=== PATIENT | female | born 1950 | race Caucasian/White ===

== ENCOUNTER → 2023-09-27 07:53 | Outpatient (REF) | payer MEDICARE, BC, SELFPAY | LOC: HWWDC 07:53 | PROVIDERS: ATTENDING PHYSICIAN Internal Medicine | DX: Z12.31 Encounter for screening mammogram for malignant neoplasm of breast (principal) | CPT/HCPCS: 77063; 77067 ==

== ENCOUNTER → 2023-12-14 06:13 | Outpatient (REF) | payer MEDICARE, BC, SELFPAY ==
[2023-12-14 10:52] LABS: ALT (SGPT) 26 U/L (0-35); AST (SGOT) 26 U/L (14-36); Albumin 4.4 g/dl (3.5-5.0); Alkaline Phosphatase 83 U/L (38-126); Blood Urea Nitrogen 39 mg/dl (7-17); Calcium 9.6 mg/dl (8.4-10.2); Carbon Dioxide 27 mmol/L (22-30); Chloride 105 mmol/L (98-107); Glucose 127 mg/dl (70-99); Potassium 3.6 mmol/L (3.5-5.1); Sodium 140 mmol/L (135-145); Total Bilirubin 1.6 mg/dl (0.2-1.3); Total Protein 6.6 g/dl (6.3-8.2); eGFR 39.23
[2023-12-14 11:42] LABS: Glycohemoglobin (HgbA1c) 6.6 % (4.0-5.6)
== END ==
LOC: HWLAB 06:13
PROVIDERS: ATTENDING PHYSICIAN Internal Medicine
DX: R80.9 Proteinuria, unspecified (principal); E11.29 Type 2 diabetes mellitus with other diabetic kidney complication
CPT/HCPCS: 36415; 80053; 83036

== ENCOUNTER → 2024-01-19 10:14 | Outpatient (REF) | payer MEDICARE, BC, SELFPAY ==
[2024-01-19 12:39] LABS: Blood Urea Nitrogen 35 mg/dl (7-17); Calcium 10.2 mg/dl (8.4-10.2); Carbon Dioxide 27 mmol/L (22-30); Chloride 103 mmol/L (98-107); Glucose 98 mg/dl (70-99); Potassium 3.9 mmol/L (3.5-5.1); Sodium 138 mmol/L (135-145); eGFR 42.88
[2024-01-19 14:26] LABS: Microalbumin, Random Urine 1.8 mg/dl (0.6-1.7); Microalbumin/creatinine Ratio 91.4 mg/g
== END ==
LOC: HWLAB 10:14
PROVIDERS: ATTENDING PHYSICIAN Internal Medicine
DX: I27.20 Pulmonary hypertension, unspecified (principal); E11.9 Type 2 diabetes mellitus without complications; R79.89 Other specified abnormal findings of blood chemistry
CPT/HCPCS: 36415; 80048; 82043; 82570

== ENCOUNTER → 2024-02-16 09:12 | Outpatient (REF) | payer MEDICARE, BC, SELFPAY | LOC: HWRAD 09:12 | PROVIDERS: ATTENDING PHYSICIAN Internal Medicine; REFERRING PHYSICIAN Specialist | DX: R79.89 Other specified abnormal findings of blood chemistry (principal) | CPT/HCPCS: 76770 ==

== ENCOUNTER → 2024-03-14 07:09 | Outpatient (REF) | payer MEDICARE, BC, SELFPAY ==
[2024-03-14 10:13] LABS: % Basophils 1.1 % (0-2); % Eosinophils 2.8 % (0-6); % Immature Granulocytes 0.2 % (0-0.5); % Monocytes 8.8 % (1.7-9.3); % Neutrophils 57.1 % (42.2-75.2); Absolute Basophils 0.1 10^3/uL (0-0.2); Absolute Eosinophils 0.2 10^3/uL (0-0.7); Absolute Lymphocytes 1.7 10^3/uL (1.2-3.4); Absolute Monocytes 0.5 10^3/uL (0.1-0.6); Absolute Neutrophils 3.2 10^3/uL (1.4-6.5); Hematocrit 43.6 % (37.0-47.0); Hemoglobin 14.9 g/dL (12.0-16.0); Mean Corp Hgb Conc. 34.2 g/dL (33.0-37.0); Mean Corpuscular Hgb 29.3 pg (27.0-31.0); Mean Corpuscular Volume 85.8 fL (81.0-99.0); Mean Platelet Volume 10.6 fL (7.4-10.4); Nucleated Red Blood Cells % 0 %; Platelet Count 227 10^3/uL (130-400); Red Blood Cell Count 5.08 10^6/uL (4.20-5.40); Red Cell Dist. Width 12.2 % (11.5-14.5); White Blood Cell Count 5.7 10^3/uL (4.8-10.8)
[2024-03-14 11:58] LABS: Albumin 4.4 g/dl (3.5-5.0); Blood Urea Nitrogen 29 mg/dl (7-17); Calcium 10.1 mg/dl (8.4-10.2); Carbon Dioxide 23 mmol/L (22-30); Chloride 105 mmol/L (98-107); Glucose 104 mg/dl (70-99); Phosphorus 3.6 mg/dl (2.5-4.5); Potassium 4.2 mmol/L (3.5-5.1); Sodium 142 mmol/L (135-145); Uric Acid 5.8 mg/dl (2.5-6.2); eGFR 42.88
[2024-03-14 12:08] LABS: Protein/creatinine Ratio 0.3; Urine Protein 14 mg/dl
[2024-03-14 12:09] LABS: Intact PTH 40.2 pg/ml (13.6-85.8); Microalbumin, Random Urine 1.2 mg/dl (0.6-1.7); Microalbumin/creatinine Ratio 29.5 mg/g
[2024-03-14 12:22] LABS: Cortisol, Random 17.3 ug/dl; TSH Reflex To Free T4 3.81 uIU/ml (0.47-4.68)
[2024-03-17 09:16] LABS: Aldosterone, Serum 25.1 ng/dL; Aldosterone/Renin Activ Ratio 22.8 ratio (<=25.0); Renin Activity Results 1.1 ng/mL/hr
== END ==
LOC: HWLAB 07:09
PROVIDERS: ATTENDING PHYSICIAN Specialist; FAMILY PHYSICIAN Internal Medicine
DX: R79.89 Other specified abnormal findings of blood chemistry (principal); I1A.0 Resistant hypertension
CPT/HCPCS: 36415; 80069; 82043; 82088; 82533; 82570; 83835; 83970; 84156; 84244; 84443; 84550; 85025

== ENCOUNTER → 2024-04-02 16:04 | Outpatient (REF) | payer MEDICARE, BC, SELFPAY | LOC: RAD 16:04 | PROVIDERS: ATTENDING PHYSICIAN Internal Medicine Cardiovascular Disease; FAMILY PHYSICIAN Internal Medicine | DX: I10 Essential (primary) hypertension (principal); R60.0 Localized edema | CPT/HCPCS: 93970 ==

== ENCOUNTER → 2024-04-03 13:04 | Outpatient (REF) | payer MEDICARE, BC, SELFPAY | LOC: PAVMRI 13:04 | PROVIDERS: ATTENDING PHYSICIAN Specialist; FAMILY PHYSICIAN Internal Medicine | DX: I1A.0 Resistant hypertension (principal) | CPT/HCPCS: 74185; A9585 ==

== ENCOUNTER 2024-04-17 06:07 | Day surgery (SDC) | payer MEDICARE, BC, SELFPAY ==
[2024-04-17 10:53] VITALS: BMI 27.7
[2024-04-17 11:03] VITALS: BP 153/77
[2024-04-17 11:07] VITALS: BMI 27.7
[2024-04-17 11:16] LABS: Glucose - Point of Care 119 mg/dl (70-99)
[2024-04-17 13:05] VITALS: BP 103/60
[2024-04-17 13:20] VITALS: BP 87/74
[2024-04-17 13:21] LABS: Glucose - Point of Care 97 mg/dl (70-99)
[2024-04-17 13:35] VITALS: BP 120/73
== END 2024-04-17 13:40 | disposition home or self-care (01) ==
LOC: SDS 06:07
PROVIDERS: ATTENDING PHYSICIAN Internal Medicine Gastroenterology
DX: Z12.11 Encounter for screening for malignant neoplasm of colon (principal); D12.3 Benign neoplasm of transverse colon; K63.5 Polyp of colon; K57.30 Diverticulosis of large intestine without perforation or abscess without bleeding; K64.0 First degree hemorrhoids; Z86.0101 Personal history of adenomatous and serrated colon polyps; Z98.890 Other specified postprocedural states
CPT/HCPCS: 45385; 88305; 82962

== ENCOUNTER → 2024-04-19 07:57 | Outpatient (REF) | payer MEDICARE, BC, SELFPAY | LOC: HWRCS 07:57 | PROVIDERS: ATTENDING PHYSICIAN Internal Medicine Cardiovascular Disease; FAMILY PHYSICIAN Internal Medicine | DX: I10 Essential (primary) hypertension (principal); R60.0 Localized edema | CPT/HCPCS: 93306 ==

== ENCOUNTER → 2024-04-30 06:53 | Outpatient (REF) | payer MEDICARE, BC, SELFPAY ==
[2024-04-30 10:22] LABS: Blood Urea Nitrogen 31 mg/dl (7-17); Calcium 9.5 mg/dl (8.4-10.2); Carbon Dioxide 25 mmol/L (22-30); Chloride 104 mmol/L (98-107); Glucose 113 mg/dl (70-99); Potassium 4.3 mmol/L (3.5-5.1); Sodium 143 mmol/L (135-145); eGFR 47.21
[2024-04-30 11:27] LABS: Folate > 20.0 ng/ml (2.76-20); Vitamin B12 696 pg/ml (239-931)
== END ==
LOC: HWLAB 06:53
PROVIDERS: ATTENDING PHYSICIAN Specialist; FAMILY PHYSICIAN Internal Medicine
DX: R43.8 Other disturbances of smell and taste (principal); R79.89 Other specified abnormal findings of blood chemistry; I12.9 Hypertensive chronic kidney disease with stage 1 through stage 4 chronic kidney disease, or unspecified chronic kidney disease
CPT/HCPCS: 36415; 80048; 82607; 82746; 84207

== ENCOUNTER → 2024-06-15 06:11 | Outpatient (REF) | payer MEDICARE, BC, SELFPAY ==
[2024-06-15 09:32] LABS: % Basophils 1.2 % (0-2); % Eosinophils 3.1 % (0-6); % Lymphocytes 28.9 % (20.5-51.1); % Neutrophils 56.8 % (42.2-75.2); Absolute Basophils 0.1 10^3/uL (0-0.2); Absolute Eosinophils 0.2 10^3/uL (0-0.7); Absolute Lymphocytes 1.4 10^3/uL (1.2-3.4); Absolute Monocytes 0.5 10^3/uL (0.1-0.6); Absolute Neutrophils 2.8 10^3/uL (1.4-6.5); Hemoglobin 14.9 g/dL (12.0-16.0); Mean Corp Hgb Conc. 33.1 g/dL (33.0-37.0); Mean Corpuscular Hgb 30.7 pg (27.0-31.0); Mean Corpuscular Volume 92.6 fL (81.0-99.0); Mean Platelet Volume 10.7 fL (7.4-10.4); Nucleated Red Blood Cells % 0 %; Platelet Count 166 10^3/uL (130-400); Red Blood Cell Count 4.86 10^6/uL (4.20-5.40); Red Cell Dist. Width 13.2 % (11.5-14.5); White Blood Cell Count 4.9 10^3/uL (4.8-10.8)
[2024-06-15 11:09] LABS: ALT (SGPT) 33 U/L (0-35); AST (SGOT) 29 U/L (14-36); Albumin 4.5 g/dl (3.5-5.0); Alkaline Phosphatase 87 U/L (38-126); Blood Urea Nitrogen 32 mg/dl (7-17); Calcium 9.6 mg/dl (8.4-10.2); Carbon Dioxide 26 mmol/L (22-30); Chloride 103 mmol/L (98-107); Glucose 118 mg/dl (70-99); HDL Cholesterol 63 mg/dl; LDL Cholesterol, Calculated 70 mg/dl; Potassium 4.3 mmol/L (3.5-5.1); Sodium 139 mmol/L (135-145); Total Bilirubin 1.5 mg/dl (0.2-1.3); Total Cholesterol 157 mg/dl (50-199); Total Protein 6.7 g/dl (6.3-8.2); Triglyceride 123 mg/dl (10-149); Very Low Density Lipoprotein 24 mg/dl (0-30); eGFR 42.88
[2024-06-15 11:32] LABS: Glycohemoglobin (HgbA1c) 6.5 % (4.0-5.6)
== END ==
LOC: HWLAB 06:11
PROVIDERS: ATTENDING PHYSICIAN Internal Medicine
DX: I27.20 Pulmonary hypertension, unspecified (principal); E11.9 Type 2 diabetes mellitus without complications
CPT/HCPCS: 36415; 80053; 80061; 83036; 85025

== ENCOUNTER → 2024-08-29 06:12 | Outpatient (REF) | payer MEDICARE, BC, SELFPAY ==
[2024-08-29 13:17] LABS: Blood Urea Nitrogen 44 mg/dl (7-17); Calcium 9.8 mg/dl (8.4-10.2); Carbon Dioxide 20 mmol/L (22-30); Chloride 103 mmol/L (98-107); Glucose 126 mg/dl (70-99); Potassium 4.4 mmol/L (3.5-5.1); Sodium 137 mmol/L (135-145); eGFR 39.23
[2024-08-29 13:18] LABS: Folate > 20.0 ng/ml (2.76-20); Vitamin B12 756 pg/ml (239-931)
== END ==
LOC: HWLAB 06:12
PROVIDERS: ATTENDING PHYSICIAN Specialist; FAMILY PHYSICIAN Internal Medicine
DX: R43.8 Other disturbances of smell and taste (principal); E11.9 Type 2 diabetes mellitus without complications
CPT/HCPCS: 36415; 80048; 82607; 82746; 84207

== ENCOUNTER → 2024-10-16 06:08 | Outpatient (REF) | payer MEDICARE, BC, SELFPAY ==
[2024-10-16 10:33] LABS: Blood Urea Nitrogen 43 mg/dl (7-17); Calcium 9.8 mg/dl (8.4-10.2); Carbon Dioxide 26 mmol/L (22-30); Chloride 106 mmol/L (98-107); Glucose 115 mg/dl (70-99); Potassium 4.8 mmol/L (3.5-5.1); Sodium 141 mmol/L (135-145); eGFR 38.99
== END ==
LOC: HWLAB 06:08
PROVIDERS: ATTENDING PHYSICIAN Specialist; FAMILY PHYSICIAN Internal Medicine
DX: R79.89 Other specified abnormal findings of blood chemistry (principal)
CPT/HCPCS: 36415; 80048

== ENCOUNTER → 2024-10-24 09:53 | Outpatient (REF) | payer MEDICARE, BC, SELFPAY | LOC: HWWDC 09:53 | PROVIDERS: ATTENDING PHYSICIAN Internal Medicine | DX: Z12.31 Encounter for screening mammogram for malignant neoplasm of breast (principal) | CPT/HCPCS: 77063; 77067 ==

== ENCOUNTER → 2024-11-12 09:55 | Outpatient (REF) | payer MEDICARE, BC, SELFPAY | LOC: WDC 09:55 | PROVIDERS: ATTENDING PHYSICIAN Internal Medicine | DX: R92.8 Other abnormal and inconclusive findings on diagnostic imaging of breast (principal) | CPT/HCPCS: 76642 ==

== ENCOUNTER → 2024-12-26 06:12 | Outpatient (REF) | payer MEDICARE, BC, SELFPAY ==
[2024-12-26 09:47] LABS: Hematocrit 41.3 % (37.0-47.0); Hemoglobin 14.1 g/dL (12.0-16.0); Mean Corp Hgb Conc. 34.1 g/dL (33.0-37.0); Mean Corpuscular Volume 93.0 fL (81.0-99.0); Nucleated Red Blood Cells % 0 %; Platelet Count 183 10^3/uL (130-400); Red Cell Dist. Width 12.3 % (11.5-14.5)
[2024-12-26 10:05] LABS: ALT (SGPT) 29 U/L (0-35); AST (SGOT) 26 U/L (14-36); Albumin 4.4 g/dl (3.5-5.0); Alkaline Phosphatase 76 U/L (38-126); Blood Urea Nitrogen 41 mg/dl (7-17); Calcium 9.9 mg/dl (8.4-10.2); Carbon Dioxide 24 mmol/L (22-30); Chloride 109 mmol/L (98-107); Glucose 123 mg/dl (70-99); HDL Cholesterol 71 mg/dl; LDL Cholesterol, Calculated 61 mg/dl; Magnesium 2.1 mg/dl (1.6-2.3); Potassium 4.8 mmol/L (3.5-5.1); Sodium 138 mmol/L (135-145); Total Protein 6.7 g/dl (6.3-8.2); Very Low Density Lipoprotein 16 mg/dl (0-30); eGFR 35.89
[2024-12-26 10:17] LABS: Absolute Neutrophils -Man Diff 2.6 10^3/uL (1.4-6.5); Normal RBC Morphology Yes; Platelets Checked Yes; Total Cells Counted 100
[2024-12-26 10:29] LABS: TSH 3.26 uIU/ml (0.47-4.68)
[2024-12-26 10:42] LABS: Microalb - Urine Creatinine 84.400 mg/dl
[2024-12-26 10:45] LABS: Microalbumin, Random Urine 1.7 mg/dl (0.6-1.7)
== END ==
LOC: HWLAB 06:12
PROVIDERS: ATTENDING PHYSICIAN Specialist; FAMILY PHYSICIAN Internal Medicine
DX: I10 Essential (primary) hypertension (principal); R79.89 Other specified abnormal findings of blood chemistry; Z79.899 Other long term (current) drug therapy; Z13.220 Encounter for screening for lipoid disorders
CPT/HCPCS: 36415; 80053; 80061; 82043; 82570; 83735; 84443; 85025

== ENCOUNTER → 2025-02-04 11:02 | Outpatient (REF) | payer MEDICARE, BC, SELFPAY ==
[2025-02-04 16:32] LABS: Calcium 10.3 mg/dl (8.4-10.2); Uric Acid 6.2 mg/dl (2.5-6.2)
[2025-02-04 16:50] LABS: Urine Character Clear (Clear)
[2025-02-04 17:16] LABS: Microalb - Urine Creatinine 94.100 mg/dl
[2025-02-04 17:19] LABS: Microalbumin, Random Urine 1.6 mg/dl (0.6-1.7)
[2025-02-04 17:40] LABS: Urine Red Blood Cell 0-2 /HPF (0-2)
[2025-02-05 08:41] LABS: Glycohemoglobin (HgbA1c) 6.0 % (4.0-5.6)
[2025-02-07 01:14] LABS: ANA, IgG Reflex to HEp-2 None Detected (None Detected)
[2025-02-07 09:03] LABS: Arsenic, Blood 31.2 ug/L (<=12.0); Lead - Venous <2.0 ug/dL (<=3.4); Mercury, Blood 3.9 ug/L (<=10.0)
== END ==
LOC: HWLAB 11:02
PROVIDERS: ATTENDING PHYSICIAN Specialist; FAMILY PHYSICIAN Internal Medicine; REFERRING PHYSICIAN Nurse Practitioner Family
DX: R79.89 Other specified abnormal findings of blood chemistry (principal); E11.65 Type 2 diabetes mellitus with hyperglycemia
CPT/HCPCS: 36415; 81003; 81015; 82043; 82164; 82175; 82570; 83036; 83520; 83655; 83825; 83970; 84156; 84550; 86038; 86335

== ENCOUNTER → 2025-03-20 09:12 | Outpatient (REF) | payer MEDICARE, BC, SELFPAY ==
[2025-03-22 01:48] LABS: Arsenic, Blood <10.0 ug/L (<=12.0); Lead - Venous <2.0 ug/dL (<=3.4); Mercury, Blood <2.5 ug/L (<=10.0)
== END ==
LOC: HWLAB 09:12
PROVIDERS: ATTENDING PHYSICIAN Specialist; FAMILY PHYSICIAN Internal Medicine
DX: N18.31 Chronic kidney disease, stage 3a (principal); I10 Essential (primary) hypertension; N28.1 Cyst of kidney, acquired; I27.20 Pulmonary hypertension, unspecified; R78.89 Finding of other specified substances, not normally found in blood; N26.9 Renal sclerosis, unspecified; I15.8 Other secondary hypertension; I34.0 Nonrheumatic mitral (valve) insufficiency; R43.8 Other disturbances of smell and taste
CPT/HCPCS: 36415; 82175; 83655; 83825

== ENCOUNTER → 2025-05-20 10:56 | Outpatient (REF) | payer MEDICARE, BC, SELFPAY ==
[2025-05-20 11:44] LABS: Hematocrit 49.3 % (37.0-47.0); Hemoglobin 16.7 g/dL (12.0-16.0); Mean Corp Hgb Conc. 33.9 g/dL (33.0-37.0); Mean Corpuscular Volume 91.8 fL (81.0-99.0); Nucleated Red Blood Cells % 0 %; Platelet Count 194 10^3/uL (130-400); Red Cell Dist. Width 12.7 % (11.5-14.5)
[2025-05-20 12:34] LABS: Blood Urea Nitrogen 30 mg/dl (7-17); Calcium 10.1 mg/dl (8.4-10.2); Carbon Dioxide 26 mmol/L (22-30); Chloride 103 mmol/L (98-107); Glucose 105 mg/dl (70-99); Iron 92 ug/dl (37-170); Potassium 4.9 mmol/L (3.5-5.1); Sodium 138 mmol/L (135-145); eGFR 42.62
[2025-05-20 12:44] LABS: Total Iron Binding Capacity 343 ug/dl (265-497)
[2025-05-20 13:20] LABS: Ferritin 28.4 ng/ml (11.1-264.0)
== END ==
LOC: REG 10:56
PROVIDERS: Internal Medicine; ATTENDING PHYSICIAN Specialist; FAMILY PHYSICIAN Physician Assistant
DX: R79.89 Other specified abnormal findings of blood chemistry (principal); G25.81 Restless legs syndrome
CPT/HCPCS: 36415; 80048; 82728; 83540; 83550; 85025